=== PATIENT | female | born 1945 | race Two or more races ===

== ENCOUNTER 2017-06-18 12:44 | Emergency (ER) | payer OTHER ==
[~2017-06-18] VITALS: Ht 157.5 cm; Wt 115.0 kg
[2017-06-18 14:02] LABS: HEMATOCRIT 33.6 % (36.0-46.0); HEMOGLOBIN 11.1 G/DL (11.9-15.5); MCH 27.5 PG (29.0-34.0); MCV 83.2 FL (83-99); RBC DIS.WIDTH-CV 13.2 % (11.8-14.6); RBC DIS.WIDTH-SD 39.9 % (39-53); RED BLOOD COUNT 4.04 M/uL (3.80-5.20); WHITE BLOOD COUNT 11.4 K/uL (4.1-10.2)
[2017-06-18 14:22] LABS: ALBUMIN 3.7 g/dL (3.2-4.8); TROP-I INTERPRETATION NEGATIVE; TROPONIN-I < 0.01 ng/mL (0.0-0.30)
[2017-06-18 14:23] LABS: CHLORIDE 101 mEq/L (99-109); POTASSIUM 4.8 mEq/L (3.7-5.4); SODIUM 135 mEq/L (136-147)
[2017-06-18 14:25] LABS: GLUCOSE 267 mg/dL (70-99); TOTAL PROTEIN 7.1 g/dL (6.4-8.3)
[2017-06-18 14:27] LABS: TOTAL BILIRUBIN 0.2 mg/dL (0.0-1.0)
[2017-06-18 14:29] LABS: ALKALINE PHOSPHATASE 121 IU/L (3-129); CREATININE 1.3 mg/dL (0.6-1.3); GFR ESTIMATE (CALCULATED) 43 mL/min/
[2017-06-18 14:30] LABS: UREA NITROGEN (BUN) 17 mg/dL (9-23)
[2017-06-18 14:31] LABS: AST (GOT) 16 IU/L (2-34)
[2017-06-18 14:32] LABS: ALT (GPT) 15 IU/L (3-49)
[2017-06-18 14:57] LABS: PLAT.SUFFICIENCY ADEQUATE; PLATELET COUNT 222 K/uL (156-360)
[2017-06-18 16:08] LABS: APPEARANCE CLEAR ((CLEAR)); BILIRUBIN NEGATIVE; BLOOD NEGATIVE; COLOR STRAW ((YELLOW)); GLUCOSE (STRIP) 150; KETONES NEGATIVE; LEUKOCYTES NEGATIVE; NITRITE NEGATIVE; PROTEIN (STRIP) NEGATIVE; UROBILINOGEN 0.2 MG/DL (0.2-1.0)
[2017-06-18 17:00] VITALS: BP 129/84
[2017-06-18] MEDS ORDERED: ULTRAM50 MG PO (17:24)
[2017-06-18] MEDS ORDERED: MIRALAX119 GM PO (17:24)
[2017-06-18] MEDS ORDERED: TYLOPHEN500 MG PO (17:24)
== END 2017-06-18 18:07 | disposition home or self-care (01) ==
LOC: EME 12:44
PROVIDERS: Emergency Medicine
DX: S32.018A Other fracture of first lumbar vertebra, initial encounter for closed fracture (principal); M50.30 Other cervical disc degeneration, unspecified cervical region; R91.1 Solitary pulmonary nodule; K59.01 Slow transit constipation; M48.061 Spinal stenosis, lumbar region without neurogenic claudication; W01.0XXA Fall on same level from slipping, tripping and stumbling without subsequent striking against object, initial encounter; Y93.89 Activity, other specified; E11.9 Type 2 diabetes mellitus without complications; I10 Essential (primary) hypertension; Z79.82 Long term (current) use of aspirin; Z90.710 Acquired absence of both cervix and uterus
CPT/HCPCS: 70450; 71260; 72125; 72132; 74177; 80053; 81003; 84484; 85027; 93005; 99281; 99285; J7030